=== PATIENT | female | born 1960 | race Caucasian/White ===

== ENCOUNTER 2017-02-02 21:53 | Emergency (ER) | payer BC ==
[~2017-02-02] VITALS: Ht 162.6 cm; Wt 109.4 kg
[2017-02-02] MEDS ORDERED: NORCO 5/3251 TABLET PO (23:23)
[2017-02-02 23:38] VITALS: BP 139/70
== END 2017-02-02 23:50 | disposition home or self-care (01) ==
LOC: EME 21:53
DX: S42.212A Unspecified displaced fracture of surgical neck of left humerus, initial encounter for closed fracture (principal); I10 Essential (primary) hypertension; W18.30XA Fall on same level, unspecified, initial encounter; Z88.0 Allergy status to penicillin
CPT/HCPCS: 73030; 99281; 99284